=== PATIENT | female | born 1970 ===

== ENCOUNTER 2024-11-10 10:03 | Inpatient (IN) | payer OTHER ==
[~2024-11-10] VITALS: Ht 154.9 cm; Wt 50.3 kg
[2024-11-10 10:38] LABS: BASO % 0.6 % (0.1-1.2); EOS # 0.11 (0.04-0.54); EOS % 2.2 % (0.7-7.0); LYMPH # 1.79 (1.18-3.74); LYMPH % 36.5 % (19.3-53.1); MEAN PLATELET VOLUME 9.60 fl (9.4-12.4); MONO # 0.46 (0.24-0.82); MONO % 9.4 % (4.7-12.5); NEUT # 2.51 (1.56-6.13); NEUT % 51.1 % (34.0-71.1); RED CELL DISTRIBUTION WIDTH 14.4 % (11.6-14.4)
[2024-11-10 11:03] LABS: ALT/SGPT 20.0 U/L (12-78); AST/SGOT 19.0 U/L (15-37); BILIRUBIN TOTAL 0.46 mg/dL (0.3-1.2); BUN CREA RATIO 24.0 (7.0-25.0); CREATININE SERUM 0.68 mg/dL (0.70-1.30); GFR 121.52; GLOBULINA 3.8 G/DL (2.4-3.5); GLUCOSE FASTING 90.0 mg/dL (65-100); OSMOLALITY SERUM 286.0 MOSM/KG (275-295)
[2024-11-10 11:04] LABS: INR 0.97
[2024-11-10] MEDS ORDERED: SYNTHROID50 MCG (11:12)
[2024-11-10 11:13] LABS: URINE APPEARANCE Clear; URINE BILIRRUBIN Negative (NEGATIVE); URINE BLOOD Negative; URINE COLOR Yellow; URINE GLUCOSE Negative (NEGATIVE); URINE KETONE Negative (NEGATIVE); URINE LEUKOCYTE Negative; URINE NITRATE Negative; URINE PROTEIN Negative (NEGATIVE); URINE UROBILINOGEN 0.2 E.U./dl
[2024-11-10] MEDS ORDERED: GABAPENTIN (11:13)
[2024-11-10] MEDS ORDERED: FLONASE (11:13)
[2024-11-10] MEDS ORDERED: RELAFEN (11:14)
[2024-11-10] MEDS ORDERED: ALIVE (11:14)
[2024-11-10] MEDS ORDERED: KETOROLAC (11:14)
[2024-11-10 11:17] LABS: URINE BACTERIA 7.1 uL (0.0-1933); URINE EPITHELIAL CELLS 3.2 uL (0.0-38.8); URINE WBC 5.0 uL (0.0-23.2)
[2024-11-10 11:25] VITALS: BP 115/62
[2024-11-10 11:31] LABS: URINE CAST 0.00 uL (0.0-1.40); URINE RBC 0.8 uL (0.0-20.8)
[2024-11-18] MEDS ORDERED: CEFAZOLIN SODIUM 1,000 MG VIAL ONE ×2 (09:50→17:19)
[2024-11-18] MEDS ORDERED: TRANEXAMIC ACID 100MG/1ML (1000MG) AMPUL ONE (09:51)
[2024-11-18] MEDS ORDERED: ONDANSETRON HCL 2 MG/ML VIAL IV PRN (10:00)
[2024-11-18] MEDS ORDERED: METHYLPREDNISOLONE ACETATE 80 MG/ML VIAL ONE (10:49)
[2024-11-18] MEDS ORDERED: ISOPROPYL ALCOHOL 30 ML OUNCE TOP ONE (10:50)
[2024-11-18] MEDS ORDERED: LIDOCAINE HCL 1%/EPINEPHRINE 20ML VIAL IJ ONE (10:50)
[2024-11-18] MEDS ORDERED: BUPIVACAINE HCL/MPF 0.5% 30ML VIAL ONE (10:52)
[2024-11-18] MEDS ORDERED: VANCOMYCIN HCL 1,000 MG VIAL ONE (10:52)
[2024-11-18] MEDS ORDERED: KETOROLAC TROMETHAMINE 60 MG VIAL IM ONE (10:52)
[2024-11-18] MEDS ORDERED: POVIDONE-IODINE 118 ML BOTT TOP ONE (10:52)
[2024-11-18] MEDS ORDERED: OxyCODONE HCL 5 MG TABLET (ROXICODONE) PO SCH (12:00)
[2024-11-18] MEDS ORDERED: CEFAZOLIN SODIUM 1,000 MG VIAL IV SCH (12:00)
[2024-11-18] MEDS ORDERED: MORPHINE SULFATE 4 MG/ML CARTRIDGE IV ONE (14:15)
[2024-11-18 17:43] VITALS: BP 123/50
[2024-11-18] MEDS ORDERED: MORPHINE SULFATE 4 MG/ML CARTRIDGE IV SCH (18:00)
[2024-11-18] MEDS ORDERED: GABAPENTIN 100 MG CAPSULE PO SCH (21:00)
[2024-11-18] MEDS ORDERED: ORPHENADRINE CITRATE 100 MG TABLET PO SCH (21:00)
[2024-11-18 22:20] VITALS: BP 129/81
[2024-11-19 00:16] VITALS: BP 94/67
[2024-11-19 01:40] LABS: BASO % 0.2 % (0.1-1.2); EOS # 0.02 (0.04-0.54); EOS % 0.2 % (0.7-7.0); LYMPH # 0.75 (1.18-3.74); LYMPH % 8.3 % (19.3-53.1); MEAN PLATELET VOLUME 9.90 fl (9.4-12.4); MONO # 0.63 (0.24-0.82); MONO % 7.0 % (4.7-12.5); NEUT # 7.60 (1.56-6.13); NEUT % 84.0 % (34.0-71.1); RED CELL DISTRIBUTION WIDTH 13.3 % (11.6-14.4)
[2024-11-19 05:00] VITALS: BP 99/63
[2024-11-19] MEDS ORDERED: LEVOTHYROXINE SODIUM 50 MCG TABLET PO SCH (06:00)
[2024-11-19 08:00] VITALS: BP 130/70
[2024-11-19] MEDS ORDERED: RIVAROXABAN 10 MG TAB PO SCH (09:00)
[2024-11-19 14:07] LABS: COVID-19 AG NEGATIVE (NEGATIVE)
[2024-11-19 14:57] LABS: BUN CREA RATIO 15.0 (7.0-25.0); CREATININE SERUM 0.54 mg/dL (0.55-1.02); GFR 117.65; GLUCOSE FASTING 122.0 mg/dL (65-100); OSMOLALITY SERUM 270.0 MOSM/KG (275-295)
[2024-11-19] MEDS ORDERED: SOD FERRIC GLUC COMPLX/SUCROSE 62.5 MG/5 ML AMPUL IV SCH (17:46)
[2024-11-19 20:08] VITALS: BP 136/57
[2024-11-20] VITALS: BP 110/67
[2024-11-20 02:08] LABS: BASO % 0.2 % (0.1-1.2); EOS # 0.01 (0.04-0.54); EOS % 0.2 % (0.7-7.0); LYMPH # 0.96 (1.18-3.74); LYMPH % 16.1 % (19.3-53.1); MEAN PLATELET VOLUME 10.00 fl (9.4-12.4); MONO # 0.81 (0.24-0.82); NEUT # 4.14 (1.56-6.13); NEUT % 69.6 % (34.0-71.1); RED CELL DISTRIBUTION WIDTH 13.3 % (11.6-14.4)
[2024-11-20 02:12] LABS: MONO % 13.6 % (4.7-12.5)
[2024-11-20] MEDS ORDERED: Cyanocobalamin/Mecobalamin 1 TAB.SL SL SCH (09:00)
[2024-11-20 09:08] VITALS: BP 95/62
[2024-11-20] MEDS ORDERED: GABAPENTIN100 MG PO (12:30)
[2024-11-20] MEDS ORDERED: NORFLEX100MG PO (12:30)
[2024-11-20] MEDS ORDERED: XARELTO10 MG PO (12:30)
[2024-11-20] MEDS ORDERED: PERCOCET 5-3251 EACH PO (12:31)
== END 2024-11-20 17:00 | DRG 470 ==
LOC: EDSEX 11-18 09:00 → O/R 11-18 09:00 → OB/GYN 11-18 09:00 → SURH 11-18 12:00 → EDBD 11-18 12:00 → OB/GYN 11-18 14:41
PROVIDERS: Orthopaedic Surgery; ADMIT Orthopaedic Surgery; ATTEND Orthopaedic Surgery
PROC: 0SRD0JZ Replacement of Left Knee Joint with Synthetic Substitute, Open Approach (ICD-10-PCS; principal; 2024-11-18 12:00)
DX: M17.12 Unilateral primary osteoarthritis, left knee (principal); D62 Acute posthemorrhagic anemia; M85.662 Other cyst of bone, left lower leg; E03.8 Other specified hypothyroidism